=== PATIENT | male | born 2000 | race Caucasian/White ===

== ENCOUNTER → 2021-08-17 12:00 | Outpatient (CLI) | payer OTHER, SELFPAY ==
--- NOTE | ~2021-08-17 | XR_ITS ---
XR ankle RT min 3V DATE: 08/17/2021 12:30 INDICATION: Right ankle injury TECHNIQUE: 4 views COMPARISON: None FINDINGS: No fracture or dislocation of the ankle or disruption of the ankle mortise. No periosteal r eaction or bone destruction. There is soft tissue swelling of the ankle. There is suggestion of ankle joint effusion. IMPRESSION: Suggestion of ankle joint effusion. Soft tissue swelling of the ankle. Reviewed, dictated and finalized at location A. IMPRESSION: Suggestion of ankle joint effusion. Soft tissue swelling of the ank le.
== END ==
DX: S99.911A Unspecified injury of right ankle, initial encounter (principal); X58.XXXA Exposure to other specified factors, initial encounter
CPT/HCPCS: 73610

== ENCOUNTER 2022-05-10 16:30 | Emergency (ER) | payer OTHER, SELFPAY ==
[2022-05-10 17:05] VITALS: BP 137/85; PULSE 79; RESP 16; TEMP 36.7; O2SAT 98
--- NOTE | 2022-05-10 17:07 | ED.EAR ---
HPI - Ear Problem General Chief complaint: Ear Stated complaint: bilateral ear pain Time Seen by Provider: 05/10/22 17:07 Source: patient Mode of arrival: ambulatory Limitations: no limitations History of Present Illness HPI Narrative: 22-year-old male presents with complaint of pain to bilateral ears, nasal congestion, dizziness for 3 days. Taking ibuprofen and Tylenol to treat pain. Has not tried decongestant or antihistamine. Afebrile. Denies nausea vomiting. All systems reviewed and negative except as noted above. Related Data Allergies Allergy/AdvReac Type Severity Reaction Status Date / Time No Known Allergies Allergy Unverified 03/20/15 12:43 Review of Systems Review of Systems: CONSTITUTIONAL: Denies fever, chills, or sweats. EYES: Denies visual changes, redness, or discharge. ENT: Reports rhinorrhea, congestion, bilateral ear pain. CARDIOVASCULAR: Denies chest pain, palpitations, or edema. RESPIRATORY: Denies cough or dyspnea. GASTROINTESTINAL: Denies abdominal pain, nausea, vomiting, or diarrhea. GENITOURINARY: Denies dysuria or hematuria. SKIN: Denies rash or itching. MUSCULOSKELETAL: Denies back pain, joint pain, or myalgia. NEUROLOGIC: Denies headache, numbness, or weakness. Reports dizziness. PSYCHIATRIC: Denies anxiety or depression. All other systems reviewed are negative, except as documented in HPI. PMFSH Comments At time of signature, agree with nursing past medical, surgical, social and family history. There is no relevant family history pertinent to the presenting complaint. Exam Narrative: GENERAL: This is a well-nourished, well-developed patient, in no apparent distress. HEAD: normocephalic, atraumatic. EYES: PERRL. Sclera clear/white. Vision is grossly intact. EARS: External ears normal, auditory canals clear and without drainage, Fluid to bilateral TMs, worse to left TM. NOSE: External nose normal with Clear nasal drainage, erythema to both nares. NECK: Neck supple, non-tender without lymphadenopathy, masses or thyromegaly. CARDIOVASCULAR: Regular rate and rhythm without murmurs, gallops, or rubs. RESPIRATORY: Clear to auscultation. Breath sounds equal bilaterally. No wheezes, rales, or rhonchi. SKIN: warm, Dry, intact with no suspicious lesions or rash, good texture and turgor. NEURO: awake, alert, and oriented to person, place and time. There were no obvious focal neurologic abnormalities. EXTREMITIES: No joint tenderness, effusion, or edema noted. Course Course Level of Care: Express Care Visit Vital Signs Vital signs: Vital Signs Temperature 36.7 C 05/10/22 17:05 Pulse Rate 79 05/10/22 17:05 Respiratory Rate 16 05/10/22 17:05 Blood Pressure 137/85 05/10/22 17:05 Pulse Oximetry 98 05/10/22 17:05 Oxygen Delivery Room Air 05/10/22 17:05 Temperature 36.7 C 05/10/22 17:05 Pulse Rate 79 05/10/22 17:05 Respiratory Rate 16 05/10/22 17:05 Blood Pressure 137/85 05/10/22 17:05 Pulse Oximetry 98 05/10/22 17:05 Oxygen Delivery Room Air 05/10/22 17:05 Reviewed Medical Decision Making MDM Narrative Medical decision making narrative: Patient is aware of diagnosis, understands and agrees to treatment plan. Anticipatory guidance given. Patient agrees to follow-up as directed and is aware of reasons to seek care at the emergency department. Portions of this record may have been created with voice recognition software Vital Signs Vital Signs: Vital Signs Temperature 36.7 C 05/10/22 17:05 Pulse Rate 79 05/10/22 17:05 Respiratory Rate 16 05/10/22 17:05 Blood Pressure 137/85 05/10/22 17:05 Pulse Oximetry 98 05/10/22 17:05 Oxygen Delivery Room Air 05/10/22 17:05 Temperature 36.7 C 05/10/22 17:05 Pulse Rate 79 05/10/22 17:05 Respiratory Rate 16 05/10/22 17:05 Blood Pressure 137/85 05/10/22 17:05 Pulse Oximetry 98 05/10/22 17:05 Oxygen Delivery Room Air 05/10/22 17:05 Discharg
== END 2022-05-10 17:21 | disposition home or self-care (01) ==
PROVIDERS: Emergency Provider Nurse Practitioner Family
DX: H65.92 Unspecified nonsuppurative otitis media, left ear (principal); J01.90 Acute sinusitis, unspecified
CPT/HCPCS: 99213; G0463

== ENCOUNTER 2022-10-27 13:22 | Emergency (ER) | payer OTHER, SELFPAY ==
--- NOTE | ~2022-10-27 | XR_ITS ---
EXAMINATION: XR chest 2V DATE: 10/27/2022 13:48 INDICATION: Cough. COVID-19 positive. TECHNIQUE: Frontal and lateral views of the chest were obtained. COMPARISON: None. FINDINGS: The chest demonstrates clear lungs without pneumonia, pleural effusion, or pneumothorax. Th e heart size is normal. IMPRESSION: 1. No acute cardiopulmonary disease. Reviewed, dictated and finalized at location A.
[2022-10-27 13:42] VITALS: BP 129/70; PULSE 80; RESP 18; TEMP 36.2; O2SAT 99
--- NOTE | 2022-10-27 14:17 | ED.URI ---
HPI - URI/Sore Throat General Chief Complaint: Upper Respiratory Infection Stated Complaint: sob Time Seen by Provider: 10/27/22 14:17 Source: patient Mode of arrival: ambulatory Limitations: no limitations History of Present Illness HPI Narrative: 22 y/o male presented for c/o cough for over one week, diagnosed with covid 7 days ago. Cough is nonproductive, frequent, keeping him up at night and causing headache. Still with runny nose. Taking Delsym and antihistamine for symptoms. Denies sob, wheezing, n/v/d/f/c. Related Data Allergies Allergy/AdvReac Type Severity Reaction Status Date / Time No Known Allergies Allergy Unverified 03/20/15 12:43 Review of Systems Review of Systems: CONSTITUTIONAL: Denies body aches, fever, chills, or sweats. EYES: Denies visual changes, redness, or discharge. ENT: Reports rhinorrhea, congestion,Denies sore throat, or otalgia. CARDIOVASCULAR: Denies chest pain, palpitations, or edema. RESPIRATORY: Reports cough, denies sob, wheezing. GASTROINTESTINAL: Denies abdominal pain, nausea, vomiting, or diarrhea. GENITOURINARY: Denies dysuria or hematuria. SKIN: Denies rash, itching, or wounds. MUSCULOSKELETAL: Denies back pain, joint pain, or myalgia. NEUROLOGIC: Denies headache, numbness, tingling, or weakness. All systems reviewed & are unremarkable except as noted in HPI and below PMFSH Past Medical History Medical History (Updated 10/27/22 @ 14:27 by Precious Reardon, GABINO) No pertinent past medical history Comments At time of signature, I have reviewed and agree with nursing past medical, surgical, social and family history unless otherwise noted. Please see nursing chart for further information. There is no relevant family history pertinent to the presenting complaint Exam Narrative: GENERAL: mildly ill-appearing, in no acute distress. EYES: EOMI. No redness or drainage. Conjunctivae normal. ENT: Mucous membranes pink and moist. Clear rhinorrhea. TMs normal bilaterally. Throat normal. Uvula midline. NECK: Normal AROM. Supple. CHEST: No respiratory distress. LCTAB, speaking full sentences. 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 HEART: Regular rate and rhythm. No murmur appreciated. ABDOMEN: Soft, nontender, nondistended, normal active bowel sounds. SKIN: Warm, dry, no rash. Capillary refill normal. Normal skin turgor. NEURO: Alert and oriented x3. Gait steady. PSYCH: Normal affect. Course Course Emergency Course: Patient is aware of diagnosis, understands and agrees to treatment plan. Anticipatory guidance given. Patient agrees to follow-up as directed and is aware of reasons to seek care at the emergency department. Portions of this record may have been created with voice recognition software Level of Care: Express Care Visit Vital Signs Vital signs: Vital Signs Temperature 97.2 F L 10/27/22 13:42 Pulse Rate 80 10/27/22 13:42 Respiratory Rate 18 10/27/22 13:42 Blood Pressure 129/70 10/27/22 13:42 Pulse Oximetry 99 10/27/22 13:42 Oxygen Delivery Room Air 10/27/22 13:42 Temperature 97.2 F L 10/27/22 13:42 Pulse Rate 80 10/27/22 13:42 Respiratory Rate 18 10/27/22 13:42 Blood Pressure 129/70 10/27/22 13:42 Pulse Oximetry 99 10/27/22 13:42 Oxygen Delivery Room Air 10/27/22 13:42 MDM - URI/Sore Throat MDM Narrative Medical decision making narrative: Results of chest x-ray reviewed with patient. Discussed physical exam findings. Advised supportive measures and signs/symptoms to go to the ER. Pt is appropriate for outpt treatment and f/u. Differential Diagnosis Differential diagnosis: Likely upper respiratory infection, sinusitis, viral infection and bronchitis Imaging Data Radiologist's impression: Patient: Jace Thompson : 2000 MR#: [id number] Age/Sex: 22 / M Acct:[id number] Loc: [facility]? ? ADM Date: 10/27/22Attending Dr: Ordering Physician: Precious Reardon APRN Date of Service: 10/27/22 Proce
== END 2022-10-27 14:33 | disposition home or self-care (01) ==
PROVIDERS: Emergency Provider Nurse Practitioner Family
DX: B34.9 Viral infection, unspecified (principal)
CPT/HCPCS: 71046; 99213; G0463